=== PATIENT | female | born 1950 | race Caucasian/White ===

== ENCOUNTER → 2017-07-11 | Outpatient (CLI) | payer MEDICARE, MEDICAID ==
[~2017-07-11] MED LIST: AA8/1CAP3 PO; ALBU18HF IH; ASPI-515 PO; ASPI-621 PO; ATOR40TA78 PO; BIMA2.5D EACHEYE; CHOL200074 PO; FLUO40CA2 PO; FLUT10.6 IH; FURO20TA3 PO; GABA-827 PO; GLYB5TAB3 PO; HYDR-3241 PO; HYDR-3245 PO; INSU100V8 SQ; LACT1CAP35 PO; LISI40TA PO; METF10002 PO; OMEP40CA6 PO; POTA10TA12 PO; SERT50TA5 PO; TRAZ50TA18 PO
== END | disposition home or self-care (01) ==
LOC: CFH 11:42
PROVIDERS: ATTEND Internal Medicine Cardiovascular Disease
DX: I08.3 Combined rheumatic disorders of mitral, aortic and tricuspid valves (principal); Z95.2 Presence of prosthetic heart valve; Z72.0 Tobacco use
CPT/HCPCS: 93306

== ENCOUNTER → 2018-04-03 | Outpatient (CLI) | payer MEDICARE, MEDICAID ==
[2018-04-03 12:50] LABS: ALBUMIN 3.2 g/dL (3.4-5.0); ANION GAP 6 mmol/L (5-15); BASOPHILS # (AUTO) 0.08 x10^3/uL (0-0.1); BASOPHILS % (AUTO) 1 % (0-1); CALCIUM 8.6 mg/dL (8.5-10.1); CHLORIDE 109 mmol/L (98-107); EOSINOPHILS # (AUTO) 0.52 x10^3/uL (0-0.4); EOSINOPHILS % (AUTO) 5 % (1-7); LYMPHOCYTES # (AUTO) 2.67 x10^3/uL (1-3.4); LYMPHOCYTES % (AUTO) 27 % (22-44); MD NO; MEAN CORPUSCULAR HEMOGLOBIN 29.2 pg (27.0-34.8); MEAN CORPUSCULAR VOLUME 88.3 fL (80-100); MEAN PLATELET VOLUME 10.3 fL (7.4-10.4); MONOCYTES # (AUTO) 0.74 x10^3/uL (0.2-0.8); MONOCYTES % (AUTO) 7 % (2-9); NEUTROPHILS # (AUTO) 6.08 x10^3/uL (1.8-6.8); NEUTROPHILS % (AUTO) 60 % (42-75); PLATELET COUNT 187 x10^3/uL (130-400); RED BLOOD COUNT 4.73 x10^6/uL (3.82-5.3); RED CELL DISTRIBUTION WIDTH 14.4 % (9.6-15.2)
[2018-04-03 13:04] LABS: ALANINE AMINOTRANSFERASE 24 U/L (12-78); ALKALINE PHOSPHATASE 94 U/L (45-117); BILIRUBIN,TOTAL 0.4 mg/dL (0.2-1.0); CHOL/HDL RATIO 3.4; CHOLESTEROL, TOTAL 168 mg/dL (140-239); CREATININE 0.72 mg/dL (0.55-1.02); HDL CHOLESTEROL (DIRECT) 49 mg/dL (40-60); TOTAL PROTEIN 7.3 g/dL (6.4-8.2); TRIGLYCERIDES 170 mg/dL (50-200); VLDL CHOLESTEROL 34 mg/dL (0-25)
[2018-04-03 13:05] LABS: HDL CHOL % 29 % (28-40); LDL CHOLESTEROL,CALCULATED 85 mg/dL (54-169); LDL/HDL RATIO 1.7 (0.5-3.0); T4 (THYROXINE) 7.8 mcg/dL (4.8-13.9)
[2018-04-03 13:48] LABS: HEMOGLOBIN A1C 6.1 % (4.2-6.3)
== END ==
LOC: CFH 08:19
PROVIDERS: ATTEND Internal Medicine Cardiovascular Disease
DX: I10 Essential (primary) hypertension (principal); E11.9 Type 2 diabetes mellitus without complications; I34.2 Nonrheumatic mitral (valve) stenosis; E78.2 Mixed hyperlipidemia
CPT/HCPCS: 36415; 80053; 80061; 83036; 84436; 84443; 84481; 85025

== ENCOUNTER → 2018-09-30 | Outpatient (CLI) | payer MEDICARE, MEDICAID ==
[~2018-09-30] MED LIST changes: +TRAZ-136 PO; -TRAZ50TA18 PO
== END | disposition home or self-care (01) ==
LOC: CVU 12:29
PROVIDERS: ATTEND Internal Medicine Cardiovascular Disease
DX: I05.0 Rheumatic mitral stenosis (principal); I65.22 Occlusion and stenosis of left carotid artery; I07.1 Rheumatic tricuspid insufficiency; I27.20 Pulmonary hypertension, unspecified; E78.5 Hyperlipidemia, unspecified; E11.9 Type 2 diabetes mellitus without complications; Z87.891 Personal history of nicotine dependence
CPT/HCPCS: 93306; 93880

== ENCOUNTER → 2019-10-25 | Outpatient (CLI) | payer MEDICARE, MEDICAID ==
[~2019-10-25] MED LIST changes: -ASPI-621 PO; +ASPI81TA45 PO; +OMEP40CA42 PO; -OMEP40CA6 PO; +SERT50TA28 PO; -SERT50TA5 PO; -TRAZ-136 PO; +TRAZ50TA66 PO
== END | disposition home or self-care (01) ==
LOC: CVU 15:59
PROVIDERS: ATTEND Nurse Practitioner Family
DX: I08.8 Other rheumatic multiple valve diseases (principal); I11.9 Hypertensive heart disease without heart failure; E78.5 Hyperlipidemia, unspecified; Z72.0 Tobacco use
CPT/HCPCS: 93306

== ENCOUNTER 2020-04-25 08:37 | Outpatient (CLI) | payer MEDICARE, MEDICAID ==
[2020-04-25 12:50] LABS: BASOPHILS # (AUTO) 0.02 x10^3/uL (0-0.1); BASOPHILS % (AUTO) 0 % (0-1); EOSINOPHILS # (AUTO) 0.61 x10^3/uL (0-0.4); EOSINOPHILS % (AUTO) 6 % (1-7); LYMPHOCYTES % (AUTO) 16 % (22-44); MD NO; MEAN CORPUSCULAR HEMOGLOBIN 27.2 pg (27.0-34.8); MEAN CORPUSCULAR VOLUME 84.9 fL (80-100); MEAN PLATELET VOLUME 9.6 fL (7.4-10.4); MONOCYTES # (AUTO) 0.11 x10^3/uL (0.2-0.8); MONOCYTES % (AUTO) 1 % (2-9); NEUTROPHILS # (AUTO) 7.37 x10^3/uL (1.8-6.8); NEUTROPHILS % (AUTO) 77 % (42-75); PLATELET COUNT 242 x10^3/uL (130-400); RED BLOOD COUNT 4.74 x10^6/uL (3.82-5.3)
[2020-04-25 13:20] LABS: CHLORIDE 108 mmol/L (98-107)
[2020-04-25 13:27] LABS: ALANINE AMINOTRANSFERASE 26 U/L (12-78); ALBUMIN 3.6 g/dL (3.4-5.0); ALKALINE PHOSPHATASE 100 U/L (45-117); ANION GAP 6 mmol/L (5-15); BILIRUBIN,TOTAL 0.6 mg/dL (0.2-1.0); CALCIUM 9.2 mg/dL (8.5-10.1); CHOL/HDL RATIO 3.5; CHOLESTEROL, TOTAL 187 mg/dL (140-239); CREATININE 0.77 mg/dL (0.55-1.02); HDL CHOL % 29 % (28-40); HDL CHOLESTEROL (DIRECT) 54 mg/dL (40-60); LDL CHOLESTEROL,CALCULATED 79 mg/dL (54-169); LDL/HDL RATIO 1.5 (0.5-3.0); TOTAL PROTEIN 8.1 g/dL (6.4-8.2); TRIGLYCERIDES 268 mg/dL (50-200); VLDL CHOLESTEROL 54 mg/dL (0-25)
== END 2020-04-25 23:59 | disposition home or self-care (01) ==
LOC: CFH 08:37
PROVIDERS: ATTEND Internal Medicine Cardiovascular Disease
DX: Z01.810 Encounter for preprocedural cardiovascular examination (principal); I10 Essential (primary) hypertension; E11.9 Type 2 diabetes mellitus without complications; F17.210 Nicotine dependence, cigarettes, uncomplicated; E78.2 Mixed hyperlipidemia; E66.01 Morbid (severe) obesity due to excess calories; I35.0 Nonrheumatic aortic (valve) stenosis; I65.23 Occlusion and stenosis of bilateral carotid arteries; Z95.2 Presence of prosthetic heart valve
CPT/HCPCS: 36415; 80053; 80061; 82043; 82570; 83036; 85025